=== PATIENT | male | born 1980 | race Caucasian/White ===

== ENCOUNTER 2017-08-07 17:53 | Emergency (ER) | payer BC, OTHER ==
[2017-08-07 18:19] VITALS: BP 132/81
--- NOTE | 2017-08-13 07:26 | EDM.PDOC ---
ED HPI GENERAL MEDICAL PROBLEM - General Chief Complaint: Lower Extremity Injury/Pain Time Seen by Provider: 08/07/17 18:05 Source of Information: Reports: Patient History Limitations: Reports: No Limitations - History of Present Illness INITIAL COMMENTS - FREE TEXT/NARRATIVE: Pt. presents to ER with complaints of L ankle pain. Pt. states that he tripped and twisted his ankle. He is complaining of pain to the lateral and posterior aspect of the ankle. Denies any numbness/tingling in the foot. Denies any injury other than what is isolated to the L ankle. Onset Date: 08/07/17 Location: Reports: Lower Extremity, Left Quality: Reports: Ache Left Ankle Pain Score (Numeric/FACES): 6 - Related Data Allergies Allergy/AdvReac Type Severity Reaction Status Date / Time No Known Allergies Allergy Verified 08/07/17 18:09 Home Meds: Home Meds Amphetamine Sulfate [Evekeo] 20 mg BID 08/07/17 [History] Venlafaxine HCl [Venlafaxine ER] 150 mg DAILY 08/07/17 [History] buPROPion HCl [Wellbutrin Xl] 300 mg DAILY 08/07/17 [History] Past Medical History Psychiatric History: Reports: ADHD, Anxiety, Depression - Past Surgical History GI Surgical History: Reports: Appendectomy Musculoskeletal Surgical History: Reports: Carpal Tunnel Social & Family History - Tobacco Use Smoking Status *Q: Current Every Day Smoker Years of Tobacco use: 11 Packs/Tins Daily: 0.5 - Alcohol Use Number of Drinks Per Day: 12 - Recreational Drug Use Recreational Drug Use: No ED ROS GENERAL - Review of Systems Review Of Systems: See Below Constitutional: Reports: No Symptoms HEENT: Reports: No Symptoms Respiratory: Reports: No Symptoms Cardiovascular: Reports: No Symptoms Endocrine: Reports: No Symptoms GI/Abdominal: Reports: No Symptoms : Reports: No Symptoms Musculoskeletal: Reports: No Symptoms Skin: Reports: No Symptoms Neurological: Reports: No Symptoms Psychiatric: Reports: No Symptoms Hematologic/Lymphatic: Reports: No Symptoms Immunologic: Reports: No Symptoms ED EXAM, GENERAL - Physical Exam Exam: See Below Exam Limited By: No Limitations General Appearance: Alert, WD/WN, No Apparent Distress Peripheral Pulses: 4+: Posterior Tibial (L), Dorsalis Pedis (L) Extremities: Normal Inspection, Normal Range of Motion, Non-Tender, Normal Capillary Refill, No Pedal Edema Neurological: Alert, Oriented, CN II-XII Intact, Normal Cognition, Normal Gait, Normal Reflexes, No Motor/Sensory Deficits Course - Vital Signs Last Recorded V/S: Last Vital Signs Temp 37.1 C 08/07/17 17:55 Pulse 91 08/07/17 17:55 Resp 16 08/07/17 17:55 BP 132/81 08/07/17 17:55 Pulse Ox - Radiology Interpretation Free Text/Narrative:: Radiographs of L ankle are negative Departure - Departure Time of Disposition: 19:30 Disposition: Home, Self-Care 01 Condition: Good Clinical Impression: Left ankle sprain - Discharge Information Instructions: Ankle Sprain, [id number] Referrals: PCP,None [Primary Care Provider] - Forms: ED Department Discharge Additional Instructions: Use CAM boot and crutches. Follow-up in clinic in 7-10 days. Ice painful areas for 10 min every hour. Ibuprofen 800mg every 8 hours for pain. - Assessment/Plan Plan: Use CAM boot and crutches. Follow-up in clinic in 7-10 days. Ice painful areas for 10 min every hour. Ibuprofen 800mg every 8 hours for pain.
== END 2017-08-07 19:02 | disposition home or self-care (01) ==
LOC: VM.ED 17:53
DX: S93.402A Sprain of unspecified ligament of left ankle, initial encounter (principal); F41.9 Anxiety disorder, unspecified; F32.9 Major depressive disorder, single episode, unspecified; F17.210 Nicotine dependence, cigarettes, uncomplicated; Z79.899 Other long term (current) drug therapy; X50.1XXA Overexertion from prolonged static or awkward postures, initial encounter
CPT/HCPCS: 73610-LT; 73620-LT; 99283